=== PATIENT | male | born 1960 | race Caucasian/White ===

== ENCOUNTER → 2022-09-03 14:47 | Outpatient (CLI) | payer SELFPAY ==
--- NOTE | 2022-09-03 15:02 | CT_ITS ---
FINAL REPORT CLINICAL HISTORY: SCREENING family hx of cad pt is diabetic FINDINGS: CT CORONARY CALCIUM SCORE W/O TECHNIQUE: Thin-section axial images were obtained through the heart and coronary arteries per CT coronary calcium score protocol. This study was performed with techniques to keep radiation doses as low as reasonably achievable (ALARA). Individualized dose reduction techniques using automated exposure control or adjustment of mA and/or kV according to the patient's size were employed. FINDINGS: On the axial images, there is calcification within the left main, LAD, right coronary and circumflex arteries. This gives a coronary artery calcium score of 810 based on the Agatston scale. This coronary artery calcium score places the patient within the 85th percentile based on age and gender. The heart size is normal. There is no pleural or pericardial effusion. Limited evaluation of the lungs reveal no suspicious nodule. IMPRESSION: Coronary artery calcium score of 810 based on the Agatston scale placing the patient within the 85th percentile based on age and gender. Reviewed, Interpreted and Dictated by America Coker MD Transcribed by Talya Nguyễn Authenticated and [facility]
== END ==
PROVIDERS: PCP Family Medicine; Visit Provider Family Medicine
DX: Z13.6 Encounter for screening for cardiovascular disorders (principal)
CPT/HCPCS: 75571